=== PATIENT | female | born 1960 | race African-American/Black ===

== ENCOUNTER 2017-03-29 14:53 | Emergency (ER) | payer OTHER ==
[2017-03-29] MEDS ORDERED: Acetaminophen 500 MG TAB ONE (15:13)
--- NOTE | 2017-03-29 15:56 | RAD ---
CHEST PA AND LATERAL TWO VIEWS: 03/29/17 HISTORY: 56-year-old female with fever and bodyaches. COMPARISON: 06/09/15. FINDINGS: heart size is within normal limits. The lungs are clear. No pneumonia, edema, or pleural effusion. IMPRESSION: No acute intrathoracic disease. No evidence for pneumonia. POS: [facility]
== END 2017-03-29 15:47 | disposition home or self-care (01) ==
LOC: ERS 14:53
DX: J11.1 Influenza due to unidentified influenza virus with other respiratory manifestations (principal); E78.5 Hyperlipidemia, unspecified; I10 Essential (primary) hypertension; Z79.899 Other long term (current) drug therapy
CPT/HCPCS: 71046

== ENCOUNTER 2017-06-04 20:18 | Emergency (ER) | payer OTHER ==
[2017-06-04 22:00] LABS: #Lymphocytes 1.7 thou/uL (1.20-3.40); #Monocytes 0.5 thou/uL (0.11-0.59); #Neutrophils 8.9 thou/uL (1.40-6.50); %Basophils 0.3 % (0.0-1.0); %Lymphocytes 14.9 % (21.0-51.0); %Monocytes 4.6 % (0.0-10.0); %Neutrophils 80.1 % (42.0-75.0); Hemoglobin 11.8 g/dL (12.0-16.0); Mean Corpuscular HGB CONC 29.2 g/dL (32.0-36.0); Mean Corpuscular Hemoglobin 24.7 pg (27.0-31.0); Mean Corpuscular Volume 84.5 fl (81.0-99.0); Mean Platelet Volume 7.1 fL (7.4-10.4); Platelet Count 339 thou/uL (130-400); RBC Distribution Width 14.2 % (11.5-14.5); Red Blood Cell (RBC) Count 4.77 mill/uL (4.20-5.40); White Blood Cell (WBC) Count 11.1 thou/uL (4.8-10.8)
[2017-06-04] MEDS ORDERED: diphenhydrAMINE 50 MG/ML VIAL ONE (22:03)
[2017-06-04] MEDS ORDERED: Promethazine HCl 25 MG/ML VIAL ONE (22:10)
[2017-06-04 22:12] LABS: ALT (SGPT) 11 U/L (8-55); AST (SGOT) 14 U/L (5-34); Albumin 4.1 g/dL (3.5-5.0); Alkaline Phosphatase 70 U/L (40-150); Anion Gap 13 mmol/L (10-20); BUN (Urea Nitrogen) 7 mg/dL (9.8-20.1); Bilirubin, Total 0.7 mg/dL (0.2-1.2); Calc. Creatinine Clearance 0 mL/min (70-130); Calcium 9.3 mg/dL (7.8-10.44); Carbon Dioxide 23 mmol/L (22-29); Chloride 103 mmol/L (98-107); Estimated GFR-MDRD 89; Globulin 3.5 g/dL (2.4-3.5); Glucose 138 mg/dL (70-105); Protein, Total 7.6 g/dL (6.0-8.3); Sodium 136 mmol/L (136-145)
[2017-06-04 22:17] LABS: Bilirubin Small (Negative); Blood, Urine Negative (Negative); Clarity CLEAR (Clear); Glucose, Urine (Dipstick) Negative (Negative); Leukocyte Negative (Negative); Nitrite Negative (Negative); Protein, Urine (Dipstick) Trace mg/dL (Neg-Trace); Specific Gravity, Urine 1.023 (1.002-1.036)
--- NOTE | 2017-06-04 22:35 | RAD ---
FRONTAL VIEW CHEST: 06/04/17 COMPARISON: 06/09/15. INDICATION: Chest pain. FINDINGS: No consolidation, effusion or pneumothorax. Mild elevation of the left hemidiaphragm. Cardiomediastin al silhouette is within normal limits in size for portable technique. IMPRESSION: No focal consolidation. POS: [facility]
--- NOTE | 2017-06-04 22:48 | CT ---
HEAD CT NONCONTRAST: 06/04/17 INDICATION: Headache. FINDINGS: No ventriculomegaly or mass effect, midline shift, or acute intracranial hemorrhage. Prominent parana aldair sinus mucosal thickening is present involving the frontal and ethmoid sinuses. IMPRESSION: 1. No acute intracranial abnormality. 2. Frontoethmoidal paranasal sinus inflammatory mucosal thickening. Correlate clinically. POS: [facility]
[2017-06-04] MEDS ORDERED: Acetaminophen 500 MG TAB ONE (22:58)
[2017-06-04] MEDS ORDERED: Potassium Chloride 20 MEQ TAB ONE (22:58)
== END 2017-06-05 01:31 | disposition home or self-care (01) ==
LOC: ERS 20:18
DX: J32.9 Chronic sinusitis, unspecified (principal); E78.5 Hyperlipidemia, unspecified; I10 Essential (primary) hypertension; Z79.899 Other long term (current) drug therapy
CPT/HCPCS: 36415; 70450; 71045; 80053; 81003; 83735; 85025; 87804; 96365; 96366; J1200; J2550

== ENCOUNTER 2017-06-12 15:24 | Inpatient (IN) | payer OTHER ==
[2017-06-12 16:37] LABS: #Eosinphils 0.3 thou/uL (0.0-0.7); #Monocytes 0.6 thou/uL (0.11-0.59); #Neutrophils 5.6 thou/uL (1.40-6.50); %Basophils 0.1 % (0.0-1.0); %Eosinophils 3.4 % (0.0-10.0); %Lymphocytes 31.1 % (21.0-51.0); %Neutrophils 59.4 % (42.0-75.0); Hemoglobin 9.6 g/dL (12.0-16.0); Mean Corpuscular HGB CONC 31.6 g/dL (32.0-36.0); Mean Corpuscular Hemoglobin 26.9 pg (27.0-31.0); Mean Corpuscular Volume 85.3 fl (81.0-99.0); Mean Platelet Volume 6.8 fL (7.4-10.4); Platelet Count 377 thou/uL (130-400); RBC Distribution Width 14.6 % (11.5-14.5); Red Blood Cell (RBC) Count 3.54 mill/uL (4.20-5.40); White Blood Cell (WBC) Count 9.5 thou/uL (4.8-10.8)
[2017-06-12 17:01] LABS: ALT (SGPT) 11 U/L (8-55); AST (SGOT) 15 U/L (5-34); Albumin 3.9 g/dL (3.5-5.0); Alkaline Phosphatase 55 U/L (40-150); Anion Gap 13 mmol/L (10-20); BUN (Urea Nitrogen) 13 mg/dL (9.8-20.1); Bilirubin, Total 0.3 mg/dL (0.2-1.2); Calc. Creatinine Clearance 0 mL/min (70-130); Calcium 9.1 mg/dL (7.8-10.44); Carbon Dioxide 23 mmol/L (22-29); Chloride 108 mmol/L (98-107); Estimated GFR-MDRD Greater than 90; Glucose 91 mg/dL (70-105); Potassium 3.7 mmol/L (3.5-5.1); Protein, Total 6.9 g/dL (6.0-8.3); Sodium 140 mmol/L (136-145)
[2017-06-12] MEDS ORDERED: Pantoprazole 40 MG VIAL ONE (17:57)
[2017-06-12] MEDS ORDERED: Labetalol HCl 100 MG/20 ML VIAL SLOW IVP PRN (18:40)
[2017-06-12 20:20] VITALS: BMI 31.6
[2017-06-12] MEDS: Clindamycin 150 MG CAP PO SCH (20:29)
[2017-06-12] MEDS: Pantoprazole 40 MG VIAL IVP SCH (20:29)
[2017-06-12] MEDS: Dextrose 5 % And 0.9 % NaCl 1,000 ML IV SCH (20:30)
--- NOTE | 2017-06-13 00:30 | HP ---
CHIEF COMPLAINT: Dark stool per rectum. PRIMARY CARE PHYSICIAN: Dina Milligan is a Nurse Practitioner. HISTORY OF PRESENT ILLNESS: The patient is a very pleasant 56-year-old female with history of hypert ension who presents to the ER with complaints of dark stools x1 day. The patient stated that on day she had some abdominal discomfort, which she did not think much of. However, the patient stated that on yesterday she had about 2-3 bouts of soft dark stools. The patient denies any fevers or chil ls. The patient states that today she felt a little lightheaded and had some chest discomfort and al so was a little bit nauseated, that made her come into the ER. The patient also states that she did feel little bit short of breath today. The patient stated that she was hoping that her dark stools w ill resolve. That is why she did not come in Friday. The patient states that she has not been ta steve any ibuprofen, Aleve, Excedrin or any other NSAIDs. The patient only takes 81 mg of aspirin jian ly. PAST MEDICAL HISTORY: 1. Hypertension. 2. Hyperlipidemia. 3. Duodenitis. 4. Mild plaque noted on cardiac catheterization. PAST SURGICAL HISTORY: She had a breast tumor removed, hysterectomy, endometriosis. ALLERGIES: She list to PENICILLIN, BACTRIM. PENICILLIN causes yeast infection. She says LEVAQUIN a nd ZOFRAN causes prolonged QT. FAMILY HISTORY: Significant for hypertension, diabetes in her mother and lung cancer in her father. SOCIAL HISTORY: She is . She denies any smoking, alcohol use, or drug use. The patient castaneda s not have current medications; however, she says that she takes Crestor 20 mg daily, aspirin 81 mg d aily, and she believes she takes valsartan 160 mg daily. The patient was recently put on clindamycin for sinusitis. REVIEW OF SYSTEMS: The following complete review of systems was negative, unless otherwise mentioned in the HPI or below: Constitutional: Weight loss or gain, ability to conduct usual activities. Skin: Rash, itching. Eyes: Double vision, pain. ENT/Mouth: Nose bleeding, neck stiffness, pain, tenderness. Cardiovascular: Palpitations, dyspnea on exertion, orthopnea. Respiratory: Shortness of breath, wheezing, cough, hemoptysis, fever or night sweats. Gastrointestinal: Poor appetite, abdominal pain, heartburn, nausea, vomiting, constipation, or diarr hea. Genitourinary: Urgency, frequency, dysuria, nocturia. Musculoskeletal: Pain, swelling. Neurologic/Psychiatric: Anxiety, depression. Allergy/Immunologic: Skin rash, bleeding tendency. All negative except for the ones mentioned in the HPI. PHYSICAL EXAMINATION: VITAL SIGNS: Temperature of 98.5, respirations 18, pulse 81, blood pressure 144/85, 99% on room air. GENERAL: She is awake, alert, oriented x3, does not appear in distress. HEENT: Normocephalic, atraumatic. NECK: No lymphadenopathy noted. Sclerae is nonicteric. CARDIOVASCULAR: S1, S2 present. No murmurs, rubs or gallops. Regular rhythm. CHEST: Clear to auscultation. No rhonchi or wheezes noted. ABDOMEN: Soft. Bowel sounds are present x2. She does have mild tenderness upon palpation to her ep igastric area, right upper quadrant and left upper quadrant. EXTREMITIES: No edema. Pedal pulses are present x2. LABORATORY RESULTS: Are as the following WBCs of 9.5, hemoglobin of 9.6, hematocrit of 30.2, platele ts of 377. Chemistry: Sodium of 140, potassium of 3.7, BUN of 13, creatinine of 0.71. Her LFTs are completely normal. ASSESSMENT AND PLAN: The patient is a very pleasant 56-year-old female who presents to the hospital with complaints of dark stool. 1. Melena. The patient has had a history of upper GI bleed in the past. However, this time, she de nies taking any NSAIDs. We will keep her n.p.o. for possible EGD in the morning. We will consult GI . We will also give her Protonix IV b.i.d. We will hold antihypertensives for now. We will start he r on some gentle fluids and D5 NS at 100 mL an hour. 2. Sinusitis. The patient was taking clindamycin at home, we will continue that. 3. Hypertension. We will add p.r.n. medications if needed. 4. Sequential compression devices for deep vein thrombosis prophylaxis as the patient is coming in f or bleeding.
--- NOTE | 2017-06-13 01:26 | CON ---
DATE OF CONSULTATION: 06/12/2017 REQUESTING PHYSICIAN: Gisella Hou M.D. REASON FOR CONSULTATION: Gastrointestinal bleeding. HISTORY OF PRESENT ILLNESS: Latesha Barron is a very pleasant 56-year-old -[place] woman, a patient of my GI colleague, Dr. Enid Fagan. She has a history of hyperlipidemia, hypertension, and hysterectomy. Back in 2009, she had an upper endoscopy showing a small hiatal hernia and erosive esophagitis, which was treated at that time. Almost 2 years ago, exactly in 05/2015, the patient wa s hospitalized here for symptomatic anemia, which was thought to be related probably to GI bleeding. She underwent EGD and colonoscopy at that time, which was essentially unremarkable except for minima l duodenitis. She then underwent a capsule endoscopy on an outpatient basis that month, which was al so essentially normal. She received 2 units of RBC transfusion at that time, hemoglobin responded we ll, and she has done very well since. However, she presented again to the GI clinic earlier today an d saw one of our physician assistants, with a couple of new complaints just over the past couple of d ays. For the past 2 days, she has had some new burning pain in her epigastrium, and started to pass melenic stools. She said she passed 4 of these black bowel movements yesterday and 3 over the course of today. She started feeling a little bit fatigued and short of breath. She was sent to the emerg ency department, hemoglobin here is 9.6. This is a decline from 11.8, just 1 week ago. BUN is renata l at 13 with creatinine 0.71. ER physicians noted. Stool appeared grossly melenic. The patient has been hemodynamically stable here. She is now receiving IV Protonix. A little bit of burning epigas tric discomfort persists, but not too bad. She has no other complaints at this time. PAST MEDICAL HISTORY: Hyperlipidemia; hypertension; hysterectomy; mild duodenitis on EGD, 2016; norm al colonoscopy, 2016; normal small bowel capsule endoscopy, 2016. ALLERGIES: LEVAQUIN, PENICILLIN, ZOFRAN, BACTRIM, NSAIDs. OUTPATIENT MEDICATIONS: Crestor, Diovan, Zyrtec, hydrochlorothiazide, clindamycin (just over the pas t week for sinus infection). The patient is not on any acid suppression. She does not take any nons teroidal anti-inflammatory drugs. SOCIAL HISTORY: No tobacco, alcohol, or drug use. FAMILY HISTORY: Noncontributory. PHYSICAL EXAMINATION: VITAL SIGNS: Temperature 97.3, pulse 84, blood pressure 158/87, 97% oxygen saturation on room air. GENERAL: A 56-year-old woman, sitting up in bed comfortably, in no acute distress. SKIN: No jaundice, no rash visible or palpable. EYES: No scleral icterus. Extraocular movements intact. ENT: Mucous membranes moist, no oral lesions. LYMPH: No submandibular or supraclavicular lymphadenopathy. THYROID: Nontender to palpation. HEART: Regular rate and rhythm. LUNGS: Clear to auscultation bilaterally. ABDOMEN: Bowel sounds present, soft, some mild tenderness to palpation in the epigastrium, but no gu arding or rebound tenderness. EXTREMITIES: No peripheral edema. VESSELS: Radial pulses 2+ bilaterally. NEUROLOGICAL: Cranial nerves II-XII intact bilaterally. No focal deficits. LABORATORY STUDIES: Hemoglobin 9.6, this is down from 11.8, one week ago; WBC 9.5; platelets 377; BU N 13; creatinine 0.71. LFTs normal with total bilirubin 0.3, alkaline phosphatase 55, AST 15, ALT 11 , albumin 3.9. ASSESSMENT AND PLAN: 1. Acute blood loss anemia. 2. Melena. 3. Epigastric pain. The patient's current presentation seems most consistent with upper GI mucosal pathology such as janey ritis or peptic ulcer disease. I do note her negative endoscopic and capsule endoscopy investigation s from 2 years ago, but at this time, given the significant hemoglobin decline over the past few days , repeat endoscopic investigation is warranted. We will proceed with EGD tomorrow. Continue the IV PPI in the meantime. Further recommendations following endoscopy. Thank you for the consultation. Please call back with questions or concerns.
[2017-06-13] MEDS: Clindamycin 150 MG CAP PO SCH ×4 (01:53→20:37)
[2017-06-13] MEDS: Dextrose 5 % And 0.9 % NaCl 1,000 ML IV SCH ×2 (04:53→12:59)
[2017-06-13 04:55] LABS: Anion Gap 10 mmol/L (10-20); BUN (Urea Nitrogen) 13 mg/dL (9.8-20.1); Calc. Creatinine Clearance 102 mL/min (70-130); Calcium 8.4 mg/dL (7.8-10.44); Carbon Dioxide 26 mmol/L (22-29); Chloride 109 mmol/L (98-107); Estimated GFR-MDRD 84; Glucose 134 mg/dL (70-105); Potassium 3.6 mmol/L (3.5-5.1); Sodium 141 mmol/L (136-145)
[2017-06-13 04:56] LABS: Band 3 % (5-11); Eosinophils 5 % (0-10); Hemoglobin 8.1 g/dL (12.0-16.0); Lymphocytes 31 % (21-51); MDiff Complete? YES; Mean Corpuscular HGB CONC 31.4 g/dL (32.0-36.0); Mean Corpuscular Hemoglobin 26.6 pg (27.0-31.0); Mean Corpuscular Volume 84.9 fl (81.0-99.0); Mean Platelet Volume 6.8 fL (7.4-10.4); Monocytes 4 % (0-10); Neutrophil 57 % (42-75); PLT Morphology Comment Appears Adequate; Platelet Count 345 thou/uL (130-400); RBC Distribution Width 14.6 % (11.5-14.5); Red Blood Cell (RBC) Count 3.05 mill/uL (4.20-5.40); White Blood Cell (WBC) Count 8.2 thou/uL (4.8-10.8)
[2017-06-13] MEDS: Pantoprazole 40 MG VIAL IVP SCH ×2 (08:36→20:37)
[2017-06-13] MEDS: Rosuvastatin 20 MG TAB PO SCH (08:47)
[2017-06-13 10:28] LABS: Hemoglobin 8.8 g/dL (12.0-16.0)
--- NOTE | 2017-06-13 12:02 | OP ---
DATE OF PROCEDURE: 06/13/2017 SURGEON: Darinel Esparza M.D. WIRE CUTTER SURGEON: None. PROCEDURE: Esophagogastroduodenoscopy with control of hemorrhage. INDICATIONS: 1. Melena. 2. Acute blood loss anemia. MEDICATIONS: See anesthesia record. FINDINGS: After discussion of the risks, benefits and alternatives of the procedure, informed consen t was obtained and witnessed. Pre-endoscopic cardiopulmonary examination was satisfactory. Timeout was performed before sedation was achieved. Sedation was achieved with anesthesia assistance in the endoscopy unit. A Pentax adult upper endoscope was placed into the oropharynx and passed through the cricopharyngeus under direct visualization. The esophageal mucosa appeared normal throughout with a normal-appearing Z-line. The endoscope was passed into the stomach. Forward and retroflexed views of the entire gastric mucosa were obtained. The gastric mucosa appeared normal throughout. There wa s no evidence of any old blood, active bleeding, or bleeding lesions in the stomach. The endoscope w as then advanced through the pylorus and into the first and second portions of the duodenum. It was advanced beyond this into the fourth portion of the duodenum, most of the duodenal mucosa appeared no rmal; however, in the posterior portion of the duodenum bulb quite proximally near to the pyloric madalyn nnel, there is what appears to be a very mildly oozing Dieulafoy lesion. This was watched closely fo r several minutes and there was a tiny amount of intermittent mild oozing from this area. At this po int, it was decided to treat this area with bipolar cautery. I used a 7-Wolof heater probe to caute rize the area with good hemostasis achieved. The upper endoscope was then completely withdrawn and t he patient allowed to recover. The patient tolerated the procedure well. There were no immediate po st-procedure complications. IMPRESSION: 1. Small Dieulafoy lesion with mild oozing in the duodenal bulb, treated with bipolar cautery. 2. Otherwise, normal esophagogastroduodenoscopy. RECOMMENDATIONS: 1. Twice daily proton pump inhibitor change to oral Protonix 40 mg b.i.d. on hospital discharge. 2. Advance diet. 3. We would trend H&H tomorrow if stable and no concern for rebleeding. At that time, she could lik becka be discharged from the hospital. 4. Follow up with Dr. Fagan in the GI clinic after discharge.
--- NOTE | 2017-06-13 13:06 | PDOC.PN ---
- Subjective Encounter Start Date: 06/13/17 Encounter Start Time: 09:30 Patient seen and examined. No new complaints. No overnight events - Objective MAR Reviewed: Yes Vital Signs & Weight: Vital Signs (12 hours) Temp Pulse Resp BP Pulse Ox 06/13/17 12:10 97.6 F 80 16 161/82 H 97 06/13/17 10:40 97.5 F L 88 16 143/72 H 97 06/13/17 08:00 97.7 F 86 18 95 06/13/17 07:45 97.7 F 86 18 112/69 95 06/13/17 04:00 98.3 F 94 18 125/78 98 Weight Weight 196 lb 1 oz I&O: 06/12/17 06/13/17 06/14/17 06:59 06:59 06:59 Intake Total 1500 Balance 1500 Result Diagrams: 06/13/17 10:10 06/13/17 03:57 Phys Exam - Physical Examination Constitutional: NAD HEENT: PERRLA, moist MMs, sclera anicteric Neck: no JVD, supple Respiratory: no wheezing, no rales, no rhonchi Cardiovascular: RRR, no significant murmur, no rub Gastrointestinal: soft, non-tender, no distention, positive bowel sounds Musculoskeletal: no edema, pulses present Neurological: non-focal, normal sensation, moves all 4 limbs Psychiatric: normal affect, A&O x 3 Skin: no rash, normal turgor Dx/Plan (1) Acute blood loss anemia Code(s): D62 - ACUTE POSTHEMORRHAGIC ANEMIA Status: Acute (2) GI bleed Code(s): K92.2 - GASTROINTESTINAL HEMORRHAGE, UNSPECIFIED Status: Acute (3) Sinusitis Code(s): J32.9 - CHRONIC SINUSITIS, UNSPECIFIED Status: Acute (4) CAD (coronary artery disease) Code(s): I25.10 - ATHSCL HEART DISEASE OF [place] CORONARY ARTERY W/O ANG PCTRS Status: Chronic (5) Dyslipidemia Code(s): E78.5 - HYPERLIPIDEMIA, UNSPECIFIED Status: Chronic (6) HTN (hypertension) Code(s): I10 - ESSENTIAL (PRIMARY) HYPERTENSION Status: Chronic (7) Obesity (BMI 30.0-34.9) Code(s): E66.9 - OBESITY, UNSPECIFIED Status: Chronic - Plan cont current plan of care * s/p upper endoscopy and found with dieulafoye's lesion in stomach. * today will monitor for any recurrent bleeding * continue protonix * repeat labs tomorrow * medication reviewed as below * symptomatic treatment * expecting discharge tomorrow if stable * restart her home BP meds * DC IVF Review of Systems - Review of Systems ENT: negative: Ear Pain, Ear Discharge, Nose Pain, Nose Discharge, Nose Congestion, Mouth Pain, Mouth Swelling, Throat Pain, Throat Swelling, Other Respiratory: negative: Cough, Dry, Shortness of Breath, Hemoptysis, SOB with Excertion, Pleuritic Pain, Sputum, Wheezing Cardiovascular: negative: chest pain, palpitations, orthopnea, paroxysmal nocturnal dyspnea, edema, light headedness, other Gastrointestinal: negative: Nausea, Vomiting, Abdominal Pain, Diarrhea, Constipation, Melena, Hematochezia, Other Genitourinary: negative: Dysuria, Frequency, Incontinence, Hematuria, Retention , Other Musculoskeletal: negative: Neck Pain, Shoulder Pain, Arm Pain, Back Pain, Hand Pain, Leg Pain, Foot Pain, Other Skin: negative: Rash, Lesions, Pa, Bruising, Other - Medications/Allergies Allergies/Adverse Reactions: Allergies Allergy/AdvReac Type Severity Reaction Status Date / Time levofloxacin [From Levaquin] Allergy Verified 06/09/15 21:38 ondansetron HCl Allergy Verified 06/09/15 21:38 [From Zofran (as hydrochloride)] Penicillins Allergy Verified 11/09/14 22:20 sulfamethoxazole Allergy Verified 11/09/14 22:20 [From Bactrim] trimethoprim [From Bactrim] Allergy Verified 11/09/14 22:20 Medications: Current Medications Clindamycin HCl (Cleocin) 150 mg PO 0200,0800,1400,2000 [facility] Last Admin: 06/13/17 12:59 Dose: 150 mg Dextrose/Sodium Chloride (D5 0.9% Ns) 1,000 mls @ 100 mls/hr IV .Q10H BC Last Admin: 06/13/17 12:59 Dose: 1,000 mls Labetalol HCl (Normodyne) 5 mg SLOW IVP Q4H PRN PRN Reason: SBP Greater Than 180 Pantoprazole Sodium (Protonix) 40 mg IVP Q12HR [facility] Last Admin: 06/13/17 08:36 Dose: 40 mg Rosuvastatin Calcium (Crestor) 20 mg PO DAILY [facility] Last Admin: 06/13/17 08:47 Dose: Not Given Sodium Chloride (Flush - Normal Saline) 10 ml IVF PRN PRN PRN Reason: Saline Flush
[2017-06-13 16:10] LABS: Hemoglobin 8.9 g/dL (12.0-16.0)
[2017-06-13] MEDS ORDERED: PROPOFOL 200 MG/20 ML VIAL ONE (17:25)
[2017-06-13] MEDS ORDERED: Lidocaine 1% PF 5 ML VIAL ONE (17:25)
[2017-06-13 22:33] LABS: Hemoglobin 8.5 g/dL (12.0-16.0)
[2017-06-14] MEDS: Clindamycin 150 MG CAP PO SCH ×2 (01:37→08:33)
[2017-06-14 04:34] LABS: #Eosinphils 0.3 thou/uL (0.0-0.7); #Lymphocytes 2.4 thou/uL (1.20-3.40); #Monocytes 0.6 thou/uL (0.11-0.59); #Neutrophils 3.6 thou/uL (1.40-6.50); %Basophils 0.4 % (0.0-1.0); %Eosinophils 4.9 % (0.0-10.0); %Lymphocytes 33.7 % (21.0-51.0); %Monocytes 9.1 % (0.0-10.0); %Neutrophils 51.9 % (42.0-75.0); Hemoglobin 8.4 g/dL (12.0-16.0); Mean Corpuscular HGB CONC 30.8 g/dL (32.0-36.0); Mean Corpuscular Hemoglobin 26.7 pg (27.0-31.0); Mean Corpuscular Volume 86.4 fl (81.0-99.0); Mean Platelet Volume 7.2 fL (7.4-10.4); Platelet Count 353 thou/uL (130-400); RBC Distribution Width 14.5 % (11.5-14.5); Red Blood Cell (RBC) Count 3.14 mill/uL (4.20-5.40)
[2017-06-14] MEDS: Pantoprazole 40 MG VIAL IVP SCH (08:33)
[2017-06-14] MEDS: Rosuvastatin 20 MG TAB PO SCH (08:33)
[2017-06-14] MEDS ORDERED: Valsartan 80 MG TAB PO SCH (09:00)
--- NOTE | 2017-06-14 09:20 | PRG ---
DATE OF SERVICE: 06/14/2017 GI INPATIENT DAILY PROGRESS NOTE SUBJECTIVE: Mr. Barron is doing well. She has had no further melena. Actually, no bowel movement s since yesterday. No abdominal pain. She is tolerating her diet. Hemoglobin is essentially stable this morning at 8.4. OBJECTIVE: VITAL SIGNS: Temperature 98.9, pulse 90, blood pressure 138/83, 95% oxygen saturation on room air. GENERAL: No acute distress. HEART: Regular rate and rhythm. LUNGS: Clear to auscultation bilaterally. ABDOMEN: Soft and nontender to palpation. EXTREMITIES: No peripheral edema. LABORATORY STUDIES: Hemoglobin 8.4, WBC 7.0, platelets 353. ASSESSMENT AND PLAN: 1. Upper gastrointestinal bleeding, resolved. 2. Small Dieulafoy lesion in the duodenal bulb, status post treatment with bipolar cautery yesterday . There is no evidence of overt rebleeding since yesterday. The patient is doing well. From a GI p erspective, she could be discharged from the hospital at this time. Would have her on Protonix 40 mg b.i.d. at least until GI follow up. We will have her follow up with Dr. Fagan in the next few weeks .
[2017-06-14 11:40] VITALS: BP 113/73; TEMP 97.9
--- NOTE | 2017-06-14 11:58 | PDOC.PN ---
- Subjective Encounter Start Date: 06/14/17 Encounter Start Time: 09:10 Patient seen and examined. No new complaints. No overnight events - Objective MAR Reviewed: Yes Vital Signs & Weight: Vital Signs (12 hours) Temp Pulse Resp BP BP Pulse Ox 06/14/17 11:37 97.9 F 88 18 113/73 96 06/14/17 08:00 98.9 F 90 18 06/14/17 07:55 98.9 F 90 18 138/83 95 Weight Weight 196 lb 1 oz I&O: 06/13/17 06/14/17 06/15/17 06:59 06:59 06:59 Intake Total 1500 240 480 Balance 1500 240 480 Result Diagrams: 06/14/17 03:30 06/13/17 03:57 Phys Exam - Physical Examination Constitutional: NAD HEENT: PERRLA, moist MMs, sclera anicteric Neck: no JVD, supple Respiratory: no wheezing, no rales, no rhonchi Cardiovascular: RRR, no significant murmur, no rub Gastrointestinal: soft, non-tender, no distention, positive bowel sounds Musculoskeletal: no edema, pulses present Neurological: non-focal, normal sensation, moves all 4 limbs Psychiatric: normal affect, A&O x 3 Skin: no rash, normal turgor Dx/Plan (1) Acute blood loss anemia Code(s): D62 - ACUTE POSTHEMORRHAGIC ANEMIA Status: Acute (2) GI bleed Code(s): K92.2 - GASTROINTESTINAL HEMORRHAGE, UNSPECIFIED Status: Acute (3) Sinusitis Code(s): J32.9 - CHRONIC SINUSITIS, UNSPECIFIED Status: Acute (4) CAD (coronary artery disease) Code(s): I25.10 - ATHSCL HEART DISEASE OF [place] CORONARY ARTERY W/O ANG PCTRS Status: Chronic (5) Dyslipidemia Code(s): E78.5 - HYPERLIPIDEMIA, UNSPECIFIED Status: Chronic (6) HTN (hypertension) Code(s): I10 - ESSENTIAL (PRIMARY) HYPERTENSION Status: Chronic (7) Obesity (BMI 30.0-34.9) Code(s): E66.9 - OBESITY, UNSPECIFIED Status: Chronic - Plan cont current plan of care * medication reviewed as below * symptomatic treatment * stable H & H * see discharge kymy . Review of Systems - Review of Systems ENT: negative: Ear Pain, Ear Discharge, Nose Pain, Nose Discharge, Nose Congestion, Mouth Pain, Mouth Swelling, Throat Pain, Throat Swelling, Other Respiratory: negative: Cough, Dry, Shortness of Breath, Hemoptysis, SOB with Excertion, Pleuritic Pain, Sputum, Wheezing Cardiovascular: negative: chest pain, palpitations, orthopnea, paroxysmal nocturnal dyspnea, edema, light headedness, other Gastrointestinal: negative: Nausea, Vomiting, Abdominal Pain, Diarrhea, Constipation, Melena, Hematochezia, Other Genitourinary: negative: Dysuria, Frequency, Incontinence, Hematuria, Retention , Other Musculoskeletal: negative: Neck Pain, Shoulder Pain, Arm Pain, Back Pain, Hand Pain, Leg Pain, Foot Pain, Other Skin: negative: Rash, Lesions, Pa, Bruising, Other - Medications/Allergies Allergies/Adverse Reactions: Allergies Allergy/AdvReac Type Severity Reaction Status Date / Time levofloxacin [From Levaquin] Allergy Verified 06/09/15 21:38 ondansetron HCl Allergy Verified 06/09/15 21:38 [From Zofran (as hydrochloride)] Penicillins Allergy Verified 11/09/14 22:20 sulfamethoxazole Allergy Verified 11/09/14 22:20 [From Bactrim] trimethoprim [From Bactrim] Allergy Verified 11/09/14 22:20
--- NOTE | 2017-06-14 12:50 | DIS ---
DATE OF ADMISSION: 06/12/2017 DATE OF DISCHARGE: 06/14/2017 PRIMARY CARE PHYSICIAN: Dr. Cl Souza. DISCHARGE DISPOSITION: Home. PRIMARY DISCHARGE DIAGNOSES: 1. Acute upper gastrointestinal bleed (melena due to Dieulafoy's lesion). 2. Acute blood loss anemia. SECONDARY DISCHARGE DIAGNOSES: 1. Recent sinusitis on clindamycin. 2. Coronary artery disease. 3. Hypertension. 4. Dyslipidemia. 5. Obesity with BMI 31. PRIMARY PROCEDURE AND OPERATION: Upper endoscopy was performed by Dr. Esparza and patient was found wit h Dieulafoy's lesion in the stomach. RADIOLOGICAL INVESTIGATION: None. SIGNIFICANT LABORATORY DATA: WBC 7.0, hemoglobin 8.4, platelets 353. Sodium 141, potassium 3.6, BUN 13, creatinine 0.84, calcium 8.4. LFT normal. DISCHARGE MEDICATIONS: Patient is advised to resume aspirin on Friday 81 mg p.o. daily, clindamycin 150 mg q.8 hours to finish the course of treatment which was prescribed by ENT doctor for sinusitis, Ferrous sulfate 325 mg p.o. b.i.d., Protonix 40 mg p.o. b.i.d. for one month and then daily, Crestor 20 mg p.o. daily, valsartan 160 mg p.o. daily. CONTRAINDICATIONS: None. CODE STATUS: FULL CODE. INPATIENT CONSULTANTS: Dr. Esparza was consulted while in hospital. TEST RESULTS PENDING ON DISCHARGE: None. ALLERGIES: LEVOFLOXACIN, ZOFRAN, PENICILLIN, SULFA. DISCHARGE PLAN: Post hospital, the patient will follow up with primary care physician and GI as inst ructed. HOSPITAL COURSE: The patient is a 56-year-old female who was admitted by Dr. Gisella Hou on 05/25. Patient was having melanotic stool and that is why patient was admitted to medical floor. H er H&H initially stable and we observed in hospital for serial H&H and she did not have any significa nt blood loss to require any blood transfusion, but she underwent upper endoscopy by GI and patient w as found with Dieulafoy's lesion, which was treated by Dr. Esparza. The patient was treated with IV Pro tonix while in hospital. On discharge, we prescribed Protonix p.o. b.i.d. for one month and then she will continue daily basis. The patient is given instruction to avoid NSAIDs. The patient was initi ally relatively hypotensive and that is why she was given IV fluid and we holded her blood pressure m edication, but by the time of discharge, she was hemodynamically stable and we advised to resume all blood pressure medications and follow up with primary care physician. The patient is seen and examined at bedside today. Please see my progress note from today for furthe r details.
== END 2017-06-14 11:32 | disposition home or self-care (01) | DRG 378 ==
LOC: ERS 15:24 → T4-B 18:59
PROVIDERS: ADMIT Internal Medicine; ATTEND Internal Medicine
PROC: 0W3P8ZZ Control Bleeding in Gastrointestinal Tract, Via Natural or Artificial Opening Endoscopic (ICD-10-PCS; principal; 2017-06-13)
DX: K25.0 Acute gastric ulcer with hemorrhage (principal); D62 Acute posthemorrhagic anemia; E66.9 Obesity, unspecified; I10 Essential (primary) hypertension; J32.9 Chronic sinusitis, unspecified; Z68.31 Body mass index [BMI] 31.0-31.9, adult; Z71.3 Dietary counseling and surveillance; E78.5 Hyperlipidemia, unspecified; I25.10 Atherosclerotic heart disease of native coronary artery without angina pectoris; Z79.82 Long term (current) use of aspirin
CPT/HCPCS: 36415; 80048; 80053; 85007; 85025; 85027; 86850; 86870; 86900; 86901; 86921; 96374; C9113; J2001; J2704

== ENCOUNTER 2017-12-01 08:01 | Outpatient (CLI) | payer OTHER | END 2017-12-01 08:02 | disposition home or self-care (01) | LOC: BICMAMMO 08:01 | PROVIDERS: ATTEND Nurse Practitioner Family | DX: Z12.31 Encounter for screening mammogram for malignant neoplasm of breast (principal); R92.1 Mammographic calcification found on diagnostic imaging of breast | CPT/HCPCS: 77063; 77067 ==

== ENCOUNTER 2018-12-02 08:26 | Outpatient (CLI) | payer OTHER ==
--- NOTE | 2018-12-02 09:27 | MMO ---
Bilateral MAMMO Bilat Screen [facility]. CLINICAL HISTORY: Patient is 58 years old and is seen for screening. The patient has no family history of breast cancer. The patient has no personal history of cancer. The patient has a history of right Excisional Biopsy in 2003 - benign. VIEWS: The views performed were: bilateral craniocaudal with tomosynthesis; bilateral mediolateral oblique with tomosynthesis; and right exaggerated craniocaudal with tomosynthesis. FILMS COMPARED: The present examination has been compared to prior imaging studies performed at [facility] on 05/13/2014, 05/16/2015, 05/16/2016 and 12/01/2017. This study has been interpreted with the assistance of computer-aided detection. MAMMOGRAM FINDINGS: There are scattered fibroglandular densities. There is a mass with obscured margins seen in the MLO view only seen in the posterior upper region of the right breast. In the left breast, there are no suspicious masses, calcifications or areas of architectural distortion. IMPRESSION: MASS IN THE RIGHT BREAST REQUIRES ADDITIONAL EVALUATION. RECOMMEND DIAGNOSTIC MAMMOGRAM. ULTRASOUND MAY ALSO PROVE USEFUL AT RECALL. THE RESULTS OF THIS EXAM WERE SENT TO THE PATIENT. ACR BI-RADS Category 0 - Incomplete: Need additional imaging evaluation. [facility] will notify the patient of the need for additional imaging services. MAMMOGRAPHY NOTE: 1. A negative mammogram report should not delay a biopsy if a dominant of clinically suspicious mass is present. 2. Approximately 10% to 15% of breast cancers are not detected by mammography. 3. Adenosis and dense breasts may obscure an underlying neoplasm. Reported by: RICARDO CASTANO MD Electonically Signed: [id number]
== END 2018-12-02 08:27 | disposition home or self-care (01) ==
LOC: BICMAMMO 08:26
PROVIDERS: ATTEND Nurse Practitioner Family
DX: Z12.31 Encounter for screening mammogram for malignant neoplasm of breast (principal); Z91.89 Other specified personal risk factors, not elsewhere classified; N63.10 Unspecified lump in the right breast, unspecified quadrant
CPT/HCPCS: 77063; 77067

== ENCOUNTER 2018-12-08 14:02 | Outpatient (CLI) | payer OTHER ==
--- NOTE | 2018-12-08 14:34 | MMO ---
Right Breast MAMMO Unilat Diag [facility]. CLINICAL HISTORY: Patient is 58 years old and is seen for additional evaluation requested from prior study. The patient has no family history of breast cancer. The patient has no personal history of cancer. The patient has a history of right Excisional Biopsy in 2003 - benign. VIEWS: The views performed were: right craniocaudal spot compression with tomosynthesis; right mediolateral oblique spot compression with tomosynthesis; and right mediolateral with tomosynthesis. FILMS COMPARED: The present examination has been compared to prior imaging studies performed at [facility] on 05/16/2016, 12/01/2017, 12/02/2018 and 12/08/2018. This study has been interpreted with the assistance of computer-aided detection. MAMMOGRAM FINDINGS: There are scattered fibroglandular densities. There is a lobular mass with circumscribed margins seen in the posterior upper-inner region of the right breast. IMPRESSION: MASS IN THE RIGHT BREAST IS PROBABLY BENIGN. FOLLOW-UP IN 6 MONTHS IS RECOMMENDED. THE RESULTS OF THIS EXAM WERE SENT TO THE PATIENT. ACR BI-RADS Category 3 - Probably benign finding - short interval follow-up suggested. [facility] will notify the patient of the need for additional imaging services. MAMMOGRAPHY NOTE: 1. A negative mammogram report should not delay a biopsy if a dominant of clinically suspicious mass is present. 2. Approximately 10% to 15% of breast cancers are not detected by mammography. 3. Adenosis and dense breasts may obscure an underlying neoplasm. Reported by: CATRACHO JACOB MD Electonically Signed: [id number]
--- NOTE | 2018-12-08 14:41 | ULT ---
RIGHT BREAST ULTRASOUND: COMPARISON: Mammogram 12/08/2018, 12/02/2018, 12/01/2017, 05/16/2016. HISTORY: Focal asymmetry seen in the upper inner aspect of the right breast on mammography. FINDINGS: In the 1:30 position of the right breast approximately 10 cm from the nipple, there is a well-circums cribed hypoechoic mass measuring 9 mm in greatest dimension. This corresponds to the mammographic ab normality. There appears to be a benign-appearing calcification in the center of this mass. This ma ss most likely represents a fibroadenoma. IMPRESSION: BIRADS category 3 - probably benign finding. A 6-month followup mammogram and ultrasound is recommen ded to ensure stability. POS: THAI
== END 2018-12-08 14:03 | disposition home or self-care (01) ==
LOC: BICMAMMO 14:02
PROVIDERS: ATTEND Nurse Practitioner Family
DX: N63.10 Unspecified lump in the right breast, unspecified quadrant (principal)
CPT/HCPCS: G0279

== ENCOUNTER 2020-10-16 10:32 | Outpatient (CLI) | payer OTHER | END 2020-10-16 10:33 | disposition home or self-care (01) | LOC: BICMAMMO 10:32 | PROVIDERS: ATTEND Family Medicine | DX: R92.8 Other abnormal and inconclusive findings on diagnostic imaging of breast (principal) | CPT/HCPCS: 77066; G0279 ==

== ENCOUNTER 2021-12-05 18:59 | Emergency (ER) | payer BC ==
[2021-12-05 20:47] LABS: SARS-CoV-2 NAA Rapid Test Not Detected (NotDetected)
[2021-12-05] MEDS ORDERED: Acetaminophen 500 MG TAB ONE (21:26)
== END 2021-12-05 22:37 | disposition home or self-care (01) ==
LOC: ERS 18:59
DX: J10.1 Influenza due to other identified influenza virus with other respiratory manifestations (principal); I10 Essential (primary) hypertension; E78.00 Pure hypercholesterolemia, unspecified; Z20.822 Contact with and (suspected) exposure to COVID-19
CPT/HCPCS: 71045

== ENCOUNTER 2022-01-15 09:01 | Outpatient (CLI) | payer BC | END 2022-01-15 09:02 | disposition home or self-care (01) | LOC: BICMAMMO 09:01 | PROVIDERS: ATTEND Family Medicine | DX: Z12.31 Encounter for screening mammogram for malignant neoplasm of breast (principal); Z91.89 Other specified personal risk factors, not elsewhere classified | CPT/HCPCS: 77063; 77067 ==

== ENCOUNTER 2022-01-29 09:36 | Outpatient (CLI) | payer BC | END 2022-01-29 09:37 | disposition home or self-care (01) | LOC: MRI 09:36 | PROVIDERS: ATTEND Orthopaedic Surgery | DX: S46.812A Strain of other muscles, fascia and tendons at shoulder and upper arm level, left arm, initial encounter (principal); R60.0 Localized edema; S43.491A Other sprain of right shoulder joint, initial encounter ==

== ENCOUNTER 2023-03-24 10:31 | Outpatient (CLI) | payer BC | END 2023-03-24 10:32 | disposition home or self-care (01) | LOC: BICMAMMO 10:31 | PROVIDERS: ATTEND Nurse Practitioner Family | DX: Z12.31 Encounter for screening mammogram for malignant neoplasm of breast (principal); Z91.89 Other specified personal risk factors, not elsewhere classified | CPT/HCPCS: 77063; 77067 ==

== ENCOUNTER 2024-02-21 08:08 | Emergency (ER) | payer BC, MEDICARE, OTHER ==
[2024-02-21] MEDS ORDERED: Ketorolac Tromethamine 30 MG (1 mL) VIAL ONE (10:02)
[2024-02-21] MEDS ORDERED: Cyclobenzaprine 10 MG TAB ONE (10:02)
[2024-02-21] MEDS ORDERED: Lidocaine 4% Patch ONE (10:03)
== END 2024-02-21 11:38 | disposition home or self-care (01) ==
LOC: ERS 08:08
DX: M54.32 Sciatica, left side (principal); I10 Essential (primary) hypertension; E78.00 Pure hypercholesterolemia, unspecified; Z79.899 Other long term (current) drug therapy
CPT/HCPCS: 96372; 99283; J1885